=== PATIENT | female | born 1930 | race Caucasian/White ===

== ENCOUNTER → 2017-02-03 | Outpatient (CLI) | payer MEDICARE, OTHER ==
[~2017-02-03] MED LIST: AMBIEN PO; AMBIEN10 MG PO; CLONIDINE HCL0.1 MG PO; CLONIDINE PO; DARVOCET-N 1001 TAB PO; DEXILANT60 MG PO; DICYCLOMINE HCL20 MG PO; LASIX PO; LEXAPRO PO; LOPRESSOR PO; MELOXICAM15 MG PO; METOPROLOL TAR100 MG PO; MOBIC PO; NORVASC PO; PLAVIX PO; PLAVIX300 MG PO; PREMARIN PO; PREMARIN0.45 MG PO; PRISTIQ PO; SIMVASTATIN20 MG PO; SINGULAIR PO; ZESTRIL5 MG PO; ZOCOR PO
--- NOTE | ~2017-02-03 | CT2 ---
[facility] A Service of [facility] RADIOLOGY TEXT RESULTS PATIENT: LUCILLE DENIS LOCATION: [facility] : 32 UNIT #: [id number] AGE: [address]: Magalys Camp APRN SEX: F ORDER DR: [id number] [facility] [address] [place], [place] [address] [id number] O MR#: [id number] Acc #: [id number] NAME: LUCILLE DENIS : 1930 SEX: F STUDY DATE/TIME: 02/03/2017 18:41 UNIT: [facility] ROOM: STUDY DESCRIPTION: CT Abd and Pelv W Cont Attending Physician: Magalys Camp Referring Physician: Magalys Camp Primary Care Physician: Larry Alicea M.D. MEDICAL IMAGING REPORT This report is preliminary unless electronic signature is present EXAM CT abdomen and pelvis with contrast INDICATION Generalized abdominal pain and cramping with rectal bleeding and diarrhea for the past 1-1/2 years. PROCEDURE Contrast-enhanced CT of the abdomen and pelvis. 100 mL of Isovue-370. COMPARISON 07/16/[address] exam was performed with one or more of the following radiation dose reduction techniques: automatic exposure control, adjustment of mA and/or kV according to patient size, and iterative reconstruction. FINDINGS ABDOMEN WITH CONTRAST: 7.0 mm nodule in the medial left lung base is stable. There is bibasilar scarring. ABDOMEN WITH CONTRAST: Liver, spleen, adrenal glands, and pancreas unremarkable. Previous cholecystectomy. Lobulated contour of both kidneys is similar to the prior. Small hiatal hernia. Bowel loops nondilated. Moderate colonic stool burden. Uncomplicated sigmoid diverticula. Previous ventral hernia repair. Small fat-containing hernia just to the right of midline along the superior margin of the repair measures approximately 3.6 cm in diameter and approximately 1.2 cm in thickness. It is unchanged from the prior. PELVIS WITH CONTRAST: Previous hysterectomy. No pelvic mass or fluid. No aggressive appearing bone lesion. [facility] A Service of [facility] RADIOLOGY TEXT RESULTS PATIENT: LUCILLE DENIS LOCATION: [facility] : 32 UNIT #: [id number] AGE: [address]: Magalys Camp APRN SEX: F ORDER DR: IMPRESSION 1. No clearly acute finding. 2. Moderate colonic stool burden with uncomplicated sigmoid diverticulosis. 3. Previous ventral hernia repair. Small reherniation or new hernia along the right superior aspect of the repair is unchanged from the previous study. Dictated by... Timothy Connolly M.D. THIS IS AN ELECTRONICALLY VERIFIED REPORT Timothy Connolly M.D. at 02/05/2017 6:56 AM Kenji TD: 02/04/2017 11:25 JOB #: [id number] MEDICAL IMAGING REPORT COPY
[2017-02-03 17:21] LABS: BASOPHIL% 0.7 % (0-2.5); DIFF IND NO; EOSINOPHIL# 0.2 X10e3 (0-0.7); EOSINOPHIL% 4.2 % (0.0-7.0); HEMATOCRIT 41.1 % (35.0-45.0); HEMOGLOBIN 13.6 gm/dL (12.0-16.0); LYMPHOCYTE# 0.7 X10e3 (1.0-3.5); MEAN CELL VOLUME 89.3 FL (83-96); MEAN CORPUSCULAR HEMOGLOBIN 29.6 PG (28-34); MEAN CORPUSCULAR HGB CONC 33.2 g/dL (30-36); MEAN PLATELET VOLUME 8.7 FL (6.5-11.5); MONOCYTE# 0.4 X10e3 (0-1.0); MONOCYTE% 7.5 % (3.0-12.0); NEUTROPHIL# 3.5 X10e3 (1.5-7.1); NEUTROPHIL% 72.6 % (40-75); PLATELET COUNT 259 X10e3 (140-420); RED BLOOD COUNT 4.61 X10e (3.90-5.30); RED CELL DISTRIBUTION WIDTH 14.1 % (11.0-15.5); WHITE BLOOD COUNT 4.8 X10e3 (4.0-10.5)
[2017-02-03 18:41] LABS: POC - CREATININE 0.85 mg/dL (0.44-1.03); POC - GFR >60.0 mL/min (>60)
== END | disposition home or self-care (01) ==
LOC: CLAB 16:58
PROVIDERS: Nurse Practitioner Adult Health
DX: K21.9 Gastro-esophageal reflux disease without esophagitis (principal); K62.5 Hemorrhage of anus and rectum; K58.9 Irritable bowel syndrome, unspecified; J44.9 Chronic obstructive pulmonary disease, unspecified; K57.30 Diverticulosis of large intestine without perforation or abscess without bleeding; Z90.49 Acquired absence of other specified parts of digestive tract; Z90.710 Acquired absence of both cervix and uterus; Z86.010 Personal history of colon polyps; Z98.890 Other specified postprocedural states
CPT/HCPCS: 36415; 74177; 82565; 85025; Q9967

== ENCOUNTER → 2017-04-08 | Outpatient (CLI) | payer MEDICARE, OTHER ==
--- NOTE | ~2017-04-08 | CT57 ---
[facility] A Service of [facility] RADIOLOGY TEXT RESULTS PATIENT: LUCILLE DENIS LOCATION: [facility] : 32 UNIT #: [id number] AGE: [address]: Neil Schaeffer MD SEX: F ORDER DR: [id number] [facility] [address] [place], [place] [address] [id number] O MR#: [id number] Acc #: [id number] NAME: LUCILLE DENIS : 1930 SEX: F STUDY DATE/TIME: 04/08/2017 12:42 UNIT: [facility] ROOM: STUDY DESCRIPTION: CT Chest Wo Cont Attending Physician: Neil Schaeffer M.D. Referring Physician: Neil Schaeffer M.D. Ordering Physician: Neil Schaeffer M.D. Primary Care Physician: Larry Alicea M.D. MEDICAL IMAGING REPORT This report is preliminary unless electronic signature is present EXAM CT chest INDICATIONS Pulmonary nodule. Restaging. TECHNIQUE CT of the chest without contrast. Coronal and sagittal reconstructions were obtained. This CT exam was performed with one or more of the following radiation dose reduction techniques: automatic exposure control, adjustment of mA and/or kV according to patient size, and iterative reconstruction. COMPARISON CT chest dated 04/06/2006, and CT abdomen and pelvis dated 02/03/2017. FINDINGS A 7-mm pulmonary nodule in the left lower lobe is unchanged from at least September 2014, consistent with a benign granuloma. When reviewing prior imaging, this nodule is also stable from least March 2006. No new or suspicious pulmonary findings. There are benign granulomas in the lungs. There is a small hiatal hernia. No enlarged mediastinal or hilar lymph nodes. There are some calcified lymph nodes indicating prior granulomatous exposure. No pericardial or pleural effusion. No acute osseous abnormalities. IMPRESSION 1. Small pulmonary nodules are unchanged from at least 2005, indicating benign granulomas. 2. No new or suspicious pulmonary findings. [facility] [place] [facility] TEXT RESULTS PATIENT: LUCILLE DENIS LOCATION: [facility] : 32 UNIT #: [id number] AGE: [address]: Neil Schaeffer MD SEX: F ORDER DR: Dictated by... Paresh Rivera M.D. THIS IS AN ELECTRONICALLY VERIFIED REPORT Paresh Rivera M.D. at 04/09/2017 8:03 AM MOMO/yohan TD: 04/08/2017 16:36 JOB #: [id number] MEDICAL IMAGING REPORT Page 1 of 1 COPY
== END | disposition home or self-care (01) ==
LOC: CCAT 12:26
DX: R91.1 Solitary pulmonary nodule (principal); R91.8 Other nonspecific abnormal finding of lung field; Z12.31 Encounter for screening mammogram for malignant neoplasm of breast; Z80.9 Family history of malignant neoplasm, unspecified
CPT/HCPCS: 71250; G0202